=== PATIENT | male | born 1980 | race Caucasian/White ===

== ENCOUNTER 2020-12-07 08:52 | Observation (INO) | payer OTHER ==
[~2020-12-07] VITALS: Ht 180.3 cm; Wt 127.5 kg
[~2020-12-07 08:52] MED LIST: CEPHALEXIN500 M1 PO; FLEXERIL10 MG PO; HYDROCODONE BIT1 T11 PO; IBU800 MG PO; LEVOFLOXACIN500 MG PO; LIPITOR10 MG PO; NAPROSYN500 MG PO; NEXIUM20 M1 PO; NEXIUM20 MG/PACK PO; NO DAILY MEDS; PRILOSEC20 M1 PO; VICODIN 5-3001 EACH PO; VITAMIN D50000 UNIT PO
[2020-12-07 08:59] VITALS: BP 151/92
[2020-12-07 09:10] LABS: BASO % 0.4 % (0.0-1.0); EOS # 0.2 10*3/uL (0.0-0.4); EOS % 1.7 % (1.0-4.0); LYMPH # 1.8 10*3/uL (1.3-4.4); MEAN CELL VOLUME 90.7 fl (80.0-94.0); MEAN CORPUSCULAR HGB 28.8 pg (27.0-31.0); MEAN CORPUSCULAR HGB CONC 31.7 g/dl (33.0-37.0); MONO # 0.6 10*3/uL (0.1-1.0); NEUT # 7.6 10*3/uL (2.3-7.9); NEUT % 73.5 % (47.0-73.0); PLATELET COUNT AUTOMATED 356 10*3/uL (130-400); RED BLOOD COUNT 5.07 10*6/uL (4.50-5.90); RED CELL DISTRI WIDTH 13.6 % (0-14.5); WHITE BLOOD COUNT 10.3 10*3/uL (4.8-10.8)
[2020-12-07 09:21] LABS: ACT PARTIAL THROMBO TIME 29.2 SECONDS (20.0-32.1)
[2020-12-07 09:27] LABS: ALBUMIN 3.3 gm/dl (3.1-4.5); ALKALINE PHOSPHATASE 124 U/L (45-117); BUN 14 mg/dl (7-24); CHLORIDE 106 mmol/L (98-107); CREATININE 0.89 mg/dL (0.70-1.30); POTASSIUM 4.2 mmol/L (3.5-5.1); SGOT/AST 10 IU/L (3-35); SGPT/ALT 24 U/L (12-78); SODIUM 139 mmol/L (136-145); TOTAL PROTEIN 7.7 gm/dL (6.4-8.2)
[2020-12-07 09:29] LABS: TROPONIN I < 0.015 ng/ml (<0.045)
[2020-12-07 10:00] VITALS: BP 150/90
[2020-12-07 11:00] VITALS: BP 150/88
[2020-12-07] MEDS ORDERED: TYLENOL325 M1 PO (12:01)
[2020-12-07] MEDS ORDERED: IBU800 MG PO (12:01)
[2020-12-07 12:06] VITALS: BP 116/72
[2020-12-07 16:00] VITALS: BP 116/77
[2020-12-07 20:00] VITALS: BP 127/83
[2020-12-08] VITALS: BP 122/80
[2020-12-08 06:19] LABS: BASO % 0.4 % (0.0-1.0); EOS # 0.2 10*3/uL (0.0-0.4); HEMATOCRIT 46.2 % (42.0-52.0); LYMPH # 2.3 10*3/uL (1.3-4.4); LYMPH % 24.1 % (27.0-41.0); MEAN CELL VOLUME 91.3 fl (80.0-94.0); MEAN CORPUSCULAR HGB 28.7 pg (27.0-31.0); MEAN CORPUSCULAR HGB CONC 31.4 g/dl (33.0-37.0); MEAN PLATELET VOLUME 10.4 fl (9.6-12.3); MONO # 0.5 10*3/uL (0.1-1.0); MONO % 5.1 % (3.0-9.0); NEUT # 6.4 10*3/uL (2.3-7.9); NEUT % 68.2 % (47.0-73.0); PLATELET COUNT AUTOMATED 362 10*3/uL (130-400); RED BLOOD COUNT 5.06 10*6/uL (4.50-5.90); RED CELL DISTRI WIDTH 13.8 % (0-14.5); WHITE BLOOD COUNT 9.4 10*3/uL (4.8-10.8)
[2020-12-08 06:34] LABS: BUN 11 mg/dl (7-24); CHLORIDE 110 mmol/L (98-107); CHOLESTEROL 175 mg/dL (<200); CREATININE 0.78 mg/dL (0.70-1.30); SODIUM 141 mmol/L (136-145); TRIGLYCERIDES 171 mg/dl (<150); VLDL CHOLESTEROL 34 mg/dL (6-40)
[2020-12-08 06:35] LABS: HDL CHOLESTEROL 25 mg/dl (40-60); LDL CHOLESTEROL 116 mg/dL (9-159)
[2020-12-08 12:00] VITALS: BP 126/83
[2020-12-08] MEDS ORDERED: ATORVASTATIN CA20 M1 PO (14:14)
== END 2020-12-08 15:07 | disposition home or self-care (01) ==
LOC: ED 08:52 → EDHOLD 11:43 → 4E 12:05
PROVIDERS: Emergency Medicine; Internal Medicine; ADMIT Student in an Organized Health Care Education/Training Program; ATTEND Student in an Organized Health Care Education/Training Program
DX: R07.89 Other chest pain (principal); R00.2 Palpitations; E83.41 Hypermagnesemia; E78.5 Hyperlipidemia, unspecified; K21.9 Gastro-esophageal reflux disease without esophagitis; E66.9 Obesity, unspecified; E44.1 Mild protein-calorie malnutrition; E55.9 Vitamin D deficiency, unspecified; F17.210 Nicotine dependence, cigarettes, uncomplicated; Z68.39 Body mass index [BMI] 39.0-39.9, adult; Z79.899 Other long term (current) drug therapy

== ENCOUNTER → 2020-12-22 | Outpatient (CLI) | payer OTHER ==
[~2020-12-22] MED LIST changes: +ATORVASTATIN CA20 M1 PO; +TYLENOL325 M1 PO
== END | disposition home or self-care (01) ==
LOC: RESCLI 00:38
PROVIDERS: ATTEND Internal Medicine
DX: R00.2 Palpitations (principal); G47.30 Sleep apnea, unspecified; E87.1 Hypo-osmolality and hyponatremia; K21.9 Gastro-esophageal reflux disease without esophagitis; E66.9 Obesity, unspecified; Z79.899 Other long term (current) drug therapy; Z87.891 Personal history of nicotine dependence

== ENCOUNTER 2022-12-12 18:11 | Emergency (ER) | payer OTHER ==
[~2022-12-12] VITALS: Ht 180.3 cm; Wt 127.0 kg
[2022-12-12] MEDS ORDERED: CEPHALEXIN500 M1 PO (18:43)
== END 2022-12-12 18:56 | disposition home or self-care (01) ==
LOC: ED 18:11
DX: S00.85XA Superficial foreign body of other part of head, initial encounter (principal); Z87.891 Personal history of nicotine dependence; Z79.899 Other long term (current) drug therapy; W45.8XXA Other foreign body or object entering through skin, initial encounter; Y93.89 Activity, other specified; Y92.89 Other specified places as the place of occurrence of the external cause; Y99.8 Other external cause status

== ENCOUNTER 2023-04-28 19:46 | Emergency (ER) | payer OTHER ==
[~2023-04-28] VITALS: Ht 180.3 cm; Wt 124.7 kg
[2023-04-28] MEDS ORDERED: AMOXICILLIN500 M3 PO (20:30)
== END 2023-04-28 20:53 | disposition home or self-care (01) ==
LOC: ED 19:46
DX: K02.9 Dental caries, unspecified (principal); F17.200 Nicotine dependence, unspecified, uncomplicated